=== PATIENT | female | born 1980 | race Caucasian/White ===

== ENCOUNTER → 2018-05-03 | Outpatient (CLI) | payer OTHER ==
--- NOTE | 2018-05-03 12:04 | KCIC ---
Complete abdominal ultrasound dated 05/03/2018. No comparison available. CLINICAL INDICATION: Abdominal pain. FINDINGS: Liver is of diffuse increased echogenicity, compatible with fatty infiltration. No apparent mass. Delivery tree normal in caliber. Common bile duct measures 4 mm. Gallbladder normal in size and echogenicity. No gallbladder wall thickening or pericholecystic fluid. No gallstones are seen. Right kidney measures 10.5 cm in length. Left kidney measures 10.6 cm in length. No hydronephrosis. Spleen is homogeneous in echogenicity and measures 10.3 cm longitudinal. Limited images portions of pancreas aorta and IVC unremarkable. No significant ascites. IMPRESSION: 1. No acute sonographic abnormality. 2. Mild hepatic steatosis. Electronically signed by: Singh Plaza MD (05/03/2018 12:01 PM) [facility]2
--- NOTE | 2018-05-03 12:06 | KCIC ---
Pelvic ultrasound dated 05/03/2018. No comparison available. Clinical data indication: Right mid pelvic pain. FINDINGS: Transvaginal pelvic ultrasound was performed. Uterus measures 11.8 x 8.8 x 7.4 cm. There is a nodular area of altered echogenicity at the anterior uterine body that measures 2.3 cm in size, likely fibroid. Endometrial complex is thickened measuring up to 18 mm. There is a small amount of fluid in the endometrial canal. Right ovary measures 2.3 x 1.9 x 2.3 cm. Left ovary measures 4.2 x 1.9 x 3.2 cm. Normal color Doppler flow to both ovaries. No free fluid. IMPRESSION: 1. Thickened endometrial complex with small amount of fluid in the endometrial canal, nonspecific. This could be related to menstrual cycle. Recommend clinical correlation. 2. Fibroid uterus. 3. No apparent adnexal mass or free fluid. Electronically signed by: Singh Plaza MD (05/03/2018 12:03 PM) [facility]-KCIC[facility]
== END | disposition home or self-care (01) ==
LOC: KCIC US 07:39
PROVIDERS: ATTEND Physician Assistant Medical
DX: K76.0 Fatty (change of) liver, not elsewhere classified (principal); D25.9 Leiomyoma of uterus, unspecified
CPT/HCPCS: 76700; 76830; 76856

== ENCOUNTER → 2019-02-08 | Outpatient (CLI) | payer OTHER ==
--- NOTE | 2019-02-08 17:17 | KCIC ---
MRI of the brain without contrast 02/08/2019 Clinical History: Headaches and photophobia. Concussion. Technique: Unenhanced T1-weighted sagittal and axial, T2-weighted axial and coronal and FLAIR, gradient echo and diffusion-weighted axial images of the brain were obtained. Findings: Some of the images are degraded by patient motion. The ventricles and sulci are within normal limits in size and configuration. No area of significant abnormal signal intensity is seen involving brain parenchyma. There is no MRI evidence of parenchymal hemorrhage. No extra-axial fluid collection is seen. There is no MRI evidence of acute ischemia/infarction. A 1.6 cm mucous retention cyst is seen involving the left maxillary sinus. Mild mucosal thickening is seen scattered throughout the paranasal sinuses. There are minimal bilateral mastoid effusions. Normal flow voids are seen within the major vascular structures surrounding the brain parenchyma. Impression: 1. Negative MRI of the brain. 2. Mild paranasal sinus and mastoid disease. Electronically signed by: Reji Hancock MD (02/08/2019 5:14 PM) [facility]-KC[facility]1
== END | disposition home or self-care (01) ==
LOC: KCIC MRI 14:02
PROVIDERS: ATTEND Psychiatry & Neurology Neurology with Special Qualifications in Child Neurology
DX: F07.81 Postconcussional syndrome (principal); H74.8X3 Other specified disorders of middle ear and mastoid, bilateral; J34.1 Cyst and mucocele of nose and nasal sinus; J34.89 Other specified disorders of nose and nasal sinuses
CPT/HCPCS: 70551

== ENCOUNTER → 2019-04-26 | Outpatient (CLI) | payer OTHER ==
--- NOTE | 2019-04-26 10:09 | RAD ---
EXAM: Lumbar spine, 3 views. HISTORY: Pain. COMPARISON: None. FINDINGS: 3 views of the lumbar spine and 3 views of the sacrum and coccyx are are obtained. There is lumbar dextrocurvature, likely positional. There is minimal retrolisthesis of L1 on L2. There is degenerative endplate remodeling at multiple levels, predominantly at L1-L2. IMPRESSION: 1. Multilevel degenerative change, primarily at L1-L2. 2. No acute osseous finding. Electronically signed by: Marisela Hitchcock MD (04/26/2019 10:06 AM) [facility]
== END | disposition home or self-care (01) ==
LOC: RAD 09:23
PROVIDERS: ATTEND Physician Assistant Medical
DX: M47.816 Spondylosis without myelopathy or radiculopathy, lumbar region (principal)
CPT/HCPCS: 72110; 72220

== ENCOUNTER → 2019-07-06 | Outpatient (CLI) | payer OTHER ==
[~2019-07-06] MED LIST: ALPR0.5T6 PO; BACL10TA PO; ESCITALOPRAM OX20 MG PO; GABA300C18 PO; GLUC1TAB71 PO; MULT1TAB52 PO; PHEN37.53 PO; PROG100C15 PO; tumeric
--- NOTE | 2019-07-06 11:43 | PAIN ---
DATE OF SERVICE: 07/06/2019 INITIAL CONSULTATION FOR PAIN CLINIC CHIEF COMPLAINT: Neck and bilateral upper extremity pain, right greater than left. HISTORY OF PRESENT ILLNESS: This is a 38-year-old female who presents with history of pain since 10/14/2018. She slipped and fell on some ice at that time and landed on her back, hit her head, had a concussion and injuries of the upper mid back and low back with pain in the base of the neck and right upper extremity as well as the left upper extremity in the shoulders since that time. The patient reports it has been getting worse with radiation to the right arm with numbness and tingling, aching, cramping pain in the right hand especially. The patient reports that she has had physical therapy. She has been doing water therapy on her own as well, also had exercises from the therapy that she has been trying which have not been significantly reducing the pain. The patient had been taking gabapentin 300 mg at bedtime as well as baclofen only with minimal decrease in pain as well. The patient reports the pain wakes her at least 5 times at night, does not affect her bowel or bladder control and does not affect her ability to walk, but significant pain with increasing range of motion with her upper extremities, reaching anything above her head with her right arm, especially but also with the left arm, repetitive motions, weightbearing and lifting with the arm. The patient reports it is a constant pain in the neck, sharp, stabbing, throbbing, shooting in the right upper extremity and in the left, intermittent in intensity, but always present, tingling, numbness and radiation, cramping and aching in the neck itself. The patient rates her disability rating from 0-10, 10 being the worst, is at 4 with family home responsibilities, social activity, 8 with recreation, 10 with occupational activity, 7 with sexual behavior, 2 with self-care and 0 with life support activities. The patient did have MRI scan of cervical spine showing multilevel degenerative changes with greater severity noted at C6-C7 to the right of midline with compression of the cord noted with protruded annulus C4-C5, C5-C6, large right paracentral disk osteophyte complex, C6-C7 shows central right paracentral disk osteophyte, complex as well. PAST MEDICAL HISTORY: Significant for previous bladder cancer, status post chemotherapy in 2016 with remission by her report, dizziness, headaches, arthritis. PREVIOUS SURGERY: Include an ACL repair, bladder surgery, left shoulder surgery and tubal ligation. CURRENT MEDICATIONS: Include alprazolam, multivitamins, Osteo Bi-Flex, baclofen, escitalopram, Prometrium, phentermine, gabapentin. ALLERGIES: THE PATIENT IS ALLERGIC TO AZITHROMYCIN. FAMILY HISTORY: Significant for cancers. SOCIAL HISTORY: The patient does not smoke, drinks alcohol very rarely, not since October of this year. No recreational, illicit or other illegal substances or drugs. 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 REVIEW OF SYSTEMS: The patient's review of systems is positive for those items mentioned in history of present illness. All systems reviewed and otherwise negative. It is complete, full and well documented on the patient's chart. PHYSICAL EXAMINATION: VITAL SIGNS: The patient's blood pressure 139/75, pulse 84, respirations 18, temperature is 98.2 degrees Fahrenheit, height is 5 foot 6 inches and weight is 229 pounds. GENERAL: The patient is awake, alert, oriented, appropriate, very pleasant demeanor. HEENT: Head is normocephalic, atraumatic. Extraocular movements are intact and symmetrical. Oral cavity, mucous membranes are moist and pink. Dentition is intact. NECK: Shows anterior throat supple without palpable lymphadenopathy noted. Swallow reflex symmetrical. CHEST: Shows normal on inspection. Breath sounds clear to auscultation bilaterally. HEART: Shows S1, S2 clear. No murmurs auscultated. ABDOMEN: Soft, nontender, nondistended. No palpable organomegaly is noted. No rebound or guarding demonstrated. BACK: Shows spine grossly in the midline. Normal appearing thoracic kyphosis and lumbar lordotic curvature. Cervical lordotic curvature is maintained as well. The patient's cervical paraspinous muscle shows symmetrical on inspection, on palpation some moderate tenderness diffusely bilaterally, but only diffusely without significant radiation. The patient has good rotational motion both laterally greater than 45 degrees closer to 90 degrees, right and left lateral rotation as well as full extension, full forward flexion without significant pain reported. The patient shows some significant tenderness; however, in the musculature throughout the middle and lower distribution of the cervical paraspinous muscles into the left greater than right paraspinous musculature and into the left greater than right trapezius musculature as well as some in the upper thoracic distribution of paraspinous muscles and rhomboid with very firm rope-like musculature, tender but without specific radiation. EXTREMITIES: The patient's upper extremities show deep tendon reflexes 2+ in the biceps, triceps tendons. Motor exam is strong with electrical software engineer strength rated at 5/5 as is bicep and tricep flexion. The patient does report pain in the base of the neck and between the shoulder blades with bicep and tricep flexion and resistance. Peripheral pulses are 2+, radial distribution. No peripheral edema is noted bilaterally. Shoulder shrug is strong and intact without loss of strength on resistance as is abduction of shoulder to 90 degrees without loss of strength on resistance. SKIN: Shows warm and dry, good turgor. No edema. No sores, rashes or bruising throughout. IMPRESSION: 1. This is a 38-year-old female with history of a fall in 10/2018 with pain in the base of the neck, right upper extremity and left upper extremity in a radicular fashion from a C6-C7 dermatomal distribution with pain and some numbness and tingling into the thumb and first finger on the right hand primarily. 2. MRI scan of cervical spine as noted. 3. History of bladder cancer. 4. Arthritis. PLAN: Options were discussed with the patient including conservative medical management, continued physical therapies, interventional techniques and she has been doing physical therapies and pool therapy on her own as well as exercises on her own. She would like to pursue interventional techniques. We discussed a cervical epidural steroid injection using description as well as anatomical models to describe the procedure. The patient will wait for preauthorization with her insurance provider. I will have her return for a translaminar C6-C7 level cervical epidural steroid injection for the clinical radiculopathy, right sided C6-C7. In the meantime, the patient will maintain activity as tolerated and also try Medrol Dosepak. The patient was given instruction as well as side effects to be aware of with the medication and will follow up as scheduled for cervical epidural steroid injection. ANURAG COTTON MD DR: MERCEDES/liat JOB#: [id number] / [id number]
== END | disposition home or self-care (01) ==
LOC: PNCL 10:17
PROVIDERS: ATTEND Anesthesiology
DX: M50.10 Cervical disc disorder with radiculopathy, unspecified cervical region (principal); M79.601 Pain in right arm; M79.602 Pain in left arm; M19.90 Unspecified osteoarthritis, unspecified site; Z88.1 Allergy status to other antibiotic agents; Z85.51 Personal history of malignant neoplasm of bladder; Z92.21 Personal history of antineoplastic chemotherapy
CPT/HCPCS: G0463

== ENCOUNTER → 2019-07-24 | Outpatient (CLI) | payer OTHER ==
[~2019-07-24] MED LIST changes: +BUPIVACAINE MPF 0.25% 10 ML VIAL. ONE; +IOHEXOL 180 MG/ML 10 ML VIAL. ONE; +methylPREDNISolone ACETATE 40 MG/ML VIAL. ONE; +methylPREDNISolone ACETATE 80 MG/ML VIAL. ONE
--- NOTE | 2019-07-25 00:52 | PAIN ---
DATE OF SERVICE: 07/24/2019 PROGRESS NOTE FOR PAIN CLINIC DIAGNOSES: Cervical radiculopathy with cervical degenerative disk disease and cervical herniated disk. HISTORY OF PRESENT ILLNESS: The patient is a 38-year-old female who returns for followup status post initial evaluation and preauthorization for cervical epidural steroid injection. The patient reports still significant pain in the base of neck and upper extremities, more on the right than the left, also in the upper back, mid back and some in the low back as well. The patient reports tingling and numbness in the right hand as well. No new motor or sensory deficits, no new changes. She has achieved her preauthorization and would like to proceed with a cervical epidural steroid injection today. The patient reports the pain is radiating, becoming more constant, cramping, tingling, aching, sharp, shooting and tight in the right upper extremity, especially in the base of the neck. The patient reports it is 9 on a scale of 10 at all times over the past week, average worst and least and is a 9 today. The patient reports it awakens her from sleep about every 3 hours. She does not report any new motor or sensory deficits or other complaints. PHYSICAL EXAMINATION: VITAL SIGNS: The patient's blood pressure 139/95, pulse 78, respirations 18, temperature 98.2 degrees Fahrenheit, height is 5 feet 6 inches and weight is 218 pounds. GENERAL: The patient is awake, alert, oriented, appropriate, very pleasant demeanor. HEENT: Shows normocephalic, atraumatic. Extraocular movements are intact and symmetrical. Oral cavity: Mucous membranes moist and pink. Dentition is intact. NECK: Shows anterior throat supple without palpable lymphadenopathy noted. Swallow reflex symmetrical. CHEST: Shows normal on inspection. Breath sounds clear to auscultation bilaterally. HEART: Shows S1, S2 clear. No murmurs auscultated. ABDOMEN: Soft, nontender, nondistended. No palpable organomegaly is noted. No rebound or guarding demonstrated. BACK: Shows spine grossly in the midline. Normal appearing thoracic kyphosis and lumbar lordotic curvature. Cervical lordotic curvature is maintained as well. Cervical paraspinous muscle shows symmetrical on inspection, on palpation shows some moderate tenderness diffusely, but only diffusely without significant radiation. The patient has good rotational motion of cervical spine, both laterally greater than 45 degrees closer to 90 degrees as well as full extension, full forward flexion bilaterally. EXTREMITIES: Upper extremities show deep tendon reflexes at 2+ in the biceps and triceps tendons. Motor exam is 5/5 with nylon hot wire cutter strength, bicep and tricep flexion and equal. Peripheral pulses are 2+ radial distribution. No peripheral edema is noted. Options were discussed with the patient. The patient's old chart was reviewed as her current medication regimen updated. Current review of systems updated today as well. We will proceed with a first in the series of cervical epidural steroid injection today with fluoroscopic guidance. Risks were again discussed including, but not limited to bleeding, infection, possibility of epidural hematoma and subsequent neurological compromise, dural puncture, headaches, spinal cord and/or nerve damage, side effects of steroid medication and poor results regarding pain control. The patient understands and wished to proceed. The patient will return to clinic in approximately 2 weeks for followup. She was counseled on return appointment, activity level and side effects to be aware of. DIAGNOSES: Cervical radiculopathy with cervical degenerative disk disease and cervical herniated disk. PROCEDURE: Cervical epidural steroid injection, translaminar approach C6-C7 level using C-arm fluoroscopic guidance under sterile prep and drape using local anesthetic. MEDICATION INJECTED: Total of 120 mg Depo-Medrol plus 5 mL of preservative-free normal saline and 2 mL of contrast. CONDITION AT DISCHARGE: Stable. The patient tolerated the procedure well, had no complications. ANURAG COTTON MD DR: MERCEDES/liat JOB#: [id number] / [id number]
== END ==
LOC: PNCL 14:12
PROVIDERS: ATTEND Anesthesiology
DX: M50.123 Cervical disc disorder at C6-C7 level with radiculopathy (principal)
CPT/HCPCS: 62321; J1030; J1040; J3490; Q9965

== ENCOUNTER → 2019-08-08 | Outpatient (CLI) | payer OTHER ==
[~2019-08-08] MED LIST changes: -BUPIVACAINE MPF 0.25% 10 ML VIAL. ONE; +LIDOCAINE 1% PF 2 ML VIAL. ONE
--- NOTE | 2019-08-08 22:41 | PAIN ---
DATE OF SERVICE: 08/08/2019 PROGRESS NOTE FOR PAIN CLINIC DIAGNOSES: Cervical radiculopathy with cervical degenerative disk disease and cervical herniated disk. HISTORY OF PRESENT ILLNESS: The patient is a 38-year-old female who returns for followup status post cervical epidural steroid injections x 1 on 07/24/2019. The patient did well with this approximately 50% improvement, and the left arm is completely resolved, her right arm is her main complaint now with pain in the base of the neck and shoulder, right upper extremity with numbness in the thumb and first and second fingers. The patient reports it is a 9 on a scale of 10 at its worst in the past week, 9 on average, 7 at its least and is a 9 today. The patient reports it is aching, sharp, shooting, tingling, burning, cramping, radiating pain is constant and severe, worse with repetitive motions with weightbearing on the right arm, driving a car with her right hand, reaching with the right arm or raising over her head with her right arm. The patient reports no new motor or sensory deficits, no new bowel or bladder incontinence, but has been awakening her from sleep occasionally. PHYSICAL EXAMINATION: VITAL SIGNS: The patient's blood pressure 129/81, pulse 79, respirations 18, temperature 98.1 degrees Fahrenheit, height is 5 feet 6 inches and weight is 222 pounds. GENERAL: The patient is awake, alert, oriented, appropriate, very pleasant demeanor. HEENT: Shows normocephalic, atraumatic. Extraocular movements are intact and symmetrical. Oral cavity: Mucous membranes moist and pink. Dentition is intact. NECK: Shows anterior throat supple without palpable lymphadenopathy noted. Swallow reflex symmetrical. CHEST: Shows normal on inspection. Breath sounds clear to auscultation bilaterally. HEART: Shows S1, S2 clear. No murmurs auscultated. ABDOMEN: Soft, nontender, nondistended. BACK: Shows spine grossly in the midline. Cervical paraspinous muscle shows symmetrical on inspection, on palpation shows some moderate tenderness diffusely bilaterally in the inferior cervical paraspinous musculature, right greater than left and into the superior medial and lateral trapezius as well without specific atrophy or hypertrophy. The patient has full rotational motion of cervical spine, both laterally as well as extension and flexion without difficulty. EXTREMITIES: Upper extremities show deep tendon reflexes at 2+ in the biceps, triceps tendons. Motor exam is strong with 5/5 tube lancer strength, bicep and tricep flexion and symmetrical. Peripheral pulses are 2+ radial. No peripheral edema is noted bilaterally. Options were discussed with the patient. The patient's old chart was reviewed, her current medication regimen updated. Current review of systems updated today as well. We will proceed with a second in the series of cervical epidural steroid injection today with fluoroscopic guidance. Risks were again discussed including, but not limited to bleeding, infection, possibility of epidural hematoma, subsequent neurologic compromise, dural puncture, headaches, spinal cord and/or nerve damage, side effects of steroid medication and poor results regarding pain control. The patient understands and wished to proceed. The patient will return to clinic in approximately 2 weeks for followup. She was counseled on return appointment, activity level and side effects to be aware of. DIAGNOSES: Cervical radiculopathy with cervical degenerative disk disease and cervical herniated disk. PROCEDURE: Cervical epidural steroid injection, translaminar approach C6-C7 level using C-arm fluoroscopic guidance under sterile prep and drape using local anesthetic. MEDICATION INJECTED: A total of 120 mg Depo-Medrol plus 5 mL of preservative-free normal saline and 2 mL of contrast. CONDITION AT DISCHARGE: Stable. The patient tolerated the procedure well, had no complications. ANURAG COTTON MD DR: MERCEDES/liat JOB#: [id number] / [id number]
== END ==
LOC: PNCL 13:43
PROVIDERS: ATTEND Anesthesiology
DX: M50.123 Cervical disc disorder at C6-C7 level with radiculopathy (principal)
CPT/HCPCS: 62321; J1030; J1040; Q9965

== ENCOUNTER → 2019-08-22 | Outpatient (CLI) | payer OTHER ==
[~2019-08-22] MED LIST changes: -LIDOCAINE 1% PF 2 ML VIAL. ONE
--- NOTE | 2019-08-23 01:05 | PAIN ---
DATE OF SERVICE: 08/22/2019 PROGRESS NOTE FOR PAIN CLINIC DIAGNOSES: Cervical radiculopathy with cervical degenerative disk disease and cervical herniated disk. HISTORY OF PRESENT ILLNESS: The patient is a 38-year-old female who returns for followup status post cervical epidural steroid injection x 2, did well after the last injection about 50% improvement overall. Pain in the neck and right upper extremity is still significant. Also, has some headaches and pain in the base of the neck as well. The patient reports that 10 on a scale of 10 at its worst over the past week, 9 on average, 7 at its least and is an 8 today. The patient reports it is sharp, dull, tight, shooting, tingling, burning and stabbing. Burning only for about 3 days after the last injection and that resolved. The patient reports it is radiating, constant, becoming more severe on the right arm with some weakness and numbness in the right hand. The patient reports no new motor or sensory deficits, no new bowel or bladder incontinence or other complaints. PHYSICAL EXAMINATION: VITAL SIGNS: The patient's blood pressure is 131/100, pulse is 114, respirations are 16, temperature is 98.9 degrees Fahrenheit, height is 5 feet 6 inches, weight is 218 pounds. GENERAL: The patient is awake, alert, oriented, appropriate, very pleasant demeanor. HEENT: Head shows normocephalic, atraumatic. Extraocular movements are intact and symmetrical. Oral cavity shows mucous membranes are moist and pink. Dentition is intact. NECK: Shows anterior throat supple without palpable lymphadenopathy noted. Swallow reflex symmetrical. CHEST: Shows normal on inspection. Breath sounds are clear bilaterally. HEART: Shows S1, S2 clear. No murmurs auscultated. ABDOMEN: Soft, nontender, nondistended. BACK: Shows spine grossly in the midline. Cervical paraspinous muscle shows symmetrical on inspection, on palpation shows some moderate tenderness diffusely bilaterally going diffusely without radiation. The patient shows good rotational motion of cervical spine, both laterally as well as extension and flexion without significant difficulty. EXTREMITIES: Upper extremities show deep tendon reflexes 2+ in the biceps and triceps tendons. Motor exam is strong with 5/5 petrologist strength at bicep and tricep flexion and are equal as well. Peripheral pulses are 2+ radial distribution. No peripheral edema is noted. Shoulder shrug is strong and intact without loss of strength on resistance bilaterally. Options were discussed with the patient. The patient's old chart was reviewed as her current medication regimen updated. Current review of systems updated today as well. We will proceed with a third in the series of cervical epidural steroid injection today with fluoroscopic guidance. Risks were again discussed including, but not limited to bleeding, infection, possibility of epidural hematoma, subsequent neurological compromise, dural puncture, headaches, spinal cord and/or nerve damage, side effects of steroid medication and poor results regarding pain control. The patient understands and wished to proceed. The patient will return to clinic in approximately 2 weeks for followup. She was counseled on return appointment, activity level and side effects to be aware of. DIAGNOSES: Cervical radiculopathy with cervical degenerative disk disease and cervical herniated disk. PROCEDURE: Cervical epidural steroid injection, translaminar approach C6-C7 level using C-arm fluoroscopic guidance under sterile prep and drape using local anesthetic. MEDICATION INJECTED: A total of 120 mg Depo-Medrol plus 5 mL of preservative-free normal saline and 2 mL of contrast. CONDITION AT DISCHARGE: Stable. The patient tolerated the procedure well, had no complications. ANURAG COTTON MD DR: MERCEDES/liat JOB#: [id number] / [id number]
== END ==
LOC: PNCL 14:07
PROVIDERS: ATTEND Anesthesiology
DX: M50.123 Cervical disc disorder at C6-C7 level with radiculopathy (principal)
CPT/HCPCS: 62321; J1030; J1040; Q9965

== ENCOUNTER → 2020-02-01 | Outpatient (CLI) | payer OTHER ==
[~2020-02-01] MED LIST changes: +BUPIVACAINE MPF 0.25% 10 ML VIAL. ONE; -IOHEXOL 180 MG/ML 10 ML VIAL. ONE; +MULT-445 PO; -MULT1TAB52 PO; +ONDA4TAB7 PO; +TOPI25TA7 PO; -methylPREDNISolone ACETATE 80 MG/ML VIAL. ONE
--- NOTE | 2020-02-01 11:53 | PAIN ---
DATE OF SERVICE: 02/01/2020 PROGRESS NOTE FOR PAIN CLINIC DIAGNOSES: 1. Cervical radiculopathy with cervical herniated disk, cervical degenerative disk disease. 2. Myofascial pain. HISTORY OF PRESENT ILLNESS: The patient is a 39-year-old female who returns for followup status post cervical epidural steroid injections x 3, most recently 08/22/2019. The patient did very well with near 100% improvement initially, but pain is returning in the base of the neck and shoulders, especially on the right side radiating to the posterior shoulder, upper back and into the right arm, into the triceps as well as the biceps on the right side radiating into the forearm and hand with some numbness and tingling. 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 She is noticing it is much more difficult to feel the distribution on the arm and her arm is becoming more weak and difficulty with proprioception as well. The patient reports the pain is a 10 on a scale of 10 at its worst over the past week, 10 on average, 8 at its least and is a 10 today. The patient reports it is aching and sharp, tight and shooting in the base of neck and shoulders, again worse on the right than the left with tingling and burning in the right arm and hand and is becoming more constant on the right side. The patient reports no loss of motor function, but significant fatigability with right arm. Again, did very well after last injections of cervical epidural steroid injections, but the pain is returning. The patient has followed up with her neurosurgeon who is requesting further continued conservative therapy and not surgery at this time. PHYSICAL EXAMINATION: VITAL SIGNS: The patient's blood pressure 136/97, pulse 96, respirations 18, temperature 98.5 degrees Fahrenheit, height is 5 feet 6 inches, and weight is 217 pounds. GENERAL: The patient is awake, alert, oriented, appropriate, very pleasant demeanor. HEENT: Shows normocephalic, atraumatic. Extraocular movements are intact and symmetrical. Oral cavity: Mucous membranes moist and pink. Dentition is intact. NECK: Shows anterior throat supple without palpable lymphadenopathy noted. Swallow reflex symmetrical. CHEST: Shows normal on inspection. Breath sounds are clear to auscultation bilaterally. No rales, rhonchi or wheezes auscultated. HEART: Shows S1, S2 clear. ABDOMEN: Soft, nontender, nondistended. BACK: Shows spine grossly in the midline. Cervical lordotic curvature as well as thoracic kyphotic curvature is normal in appearance. Cervical paraspinous muscle shows symmetrical on inspection, with palpation shows some very firm rope-like musculature, especially on the right side in the superior, middle and inferior aspect of the cervical paraspinous musculature consistent with trigger point areas of musculature. This is true on the left, but only in the inferior aspect and into the trapezius bilaterally. She has very firm rope-like musculature, especially on the right, very tender without radiation. This is true into the thoracic rhomboid musculature as well as thoracic paraspinous muscles, again worse on the right than the left, but without radiation. EXTREMITIES: Upper extremities show deep tendon reflexes at 2+ in the biceps and triceps tendons. Motor exam is strong with 5/5 guitar maker hand strength and equal bilaterally. Shoulder shrug is strong and intact, but with moderate tenderness with resistance on the right side, but without loss of strength on the right side. Options were discussed with the patient. The patient's old chart was reviewed as her current medication regimen updated. Current review of systems updated today as well. We will proceed with trigger point injections of the identified musculature. Risks were discussed including but not limited to bleeding, infection, possibility of intravascular injection sequelae, spread of local anesthetic and numbness, pneumothorax and side effects of steroid medication as well as poor results regarding pain control. The patient understands and wished to proceed. The patient will return to clinic in approximately 2 weeks for followup. She was counseled on return appointment, activity level and side effects to be aware of. We will plan on cervical epidural steroid injection on her next visit and she does have a clinical radiculopathy on the right side at the C6-C7 dermatomal distribution and did very well with injections, most recently on 08/2019. We will plan on translaminar approach at C6-C7 level for right-sided cervical radiculopathy at that time. DIAGNOSES: Myofascial pain and cervical radiculopathy with cervical herniated disk, cervical degenerative disk disease. PROCEDURE: Trigger point injections, bilateral cervical paraspinous musculature, bilateral trapezius musculature, bilateral thoracic paraspinous musculature under sterile prep and drape using local anesthetic. MEDICATION INJECTED: A total of 11 mL of 0.25% bupivacaine and 40 mg total of Depo-Medrol after negative aspiration at each injection site. CONDITION AT DISCHARGE: Stable. The patient tolerated the procedure well, had no complications. ANURAG COTTON MD DR: MERCEDES/liat JOB#: [id number] / [id number]
== END ==
LOC: PNCL 10:36
PROVIDERS: ATTEND Anesthesiology
DX: M79.18 Myalgia, other site (principal); M50.10 Cervical disc disorder with radiculopathy, unspecified cervical region
CPT/HCPCS: 20553; J1030; J3490

== ENCOUNTER → 2020-02-15 | Outpatient (CLI) | payer OTHER ==
[~2020-02-15] MED LIST changes: -BUPIVACAINE MPF 0.25% 10 ML VIAL. ONE; +IOHEXOL 180 MG/ML 10 ML VIAL. ONE; +methylPREDNISolone ACETATE 80 MG/ML VIAL. ONE
--- NOTE | 2020-02-15 13:07 | PAIN ---
DATE OF SERVICE: 02/15/2020 PROGRESS NOTE FOR PAIN CLINIC DIAGNOSES: 1. Cervical radiculopathy with cervical herniated disk and cervical degenerative disk disease. 2. Myofascial pain. HISTORY OF PRESENT ILLNESS: The patient is a 39-year-old female who returns for followup status post trigger point injections on her last visit 02/01/2020. The patient reports she did very well with about a 50% improvement or so, but the pain is returning now and has worsened in neck and the right upper extremity. The patient reports it is radiating, stinging, burning, stabbing at times, becoming more constant, tight, shooting, worse with activity, raising her arms over her head, especially on the right side and weight lifting, carrying items. The patient reports it is a 10 on a scale of 10 at its worst over the past week, 9 on average, 7 at its least and is a 7 today. The patient reports no new motor or sensory deficits, no new changes. PHYSICAL EXAMINATION: VITAL SIGNS: The patient's blood pressure is 116/71, pulse 81, respirations are 16, temperature 98.1, height is 5 feet 6 inches, weight is 218 pounds. GENERAL: The patient is awake, alert, oriented, appropriate, very pleasant demeanor. HEENT: Shows normocephalic, atraumatic. Extraocular movements are intact and symmetrical. Oral cavity: Mucous membranes moist and pink. Dentition is intact. NECK: Shows anterior throat supple without palpable lymphadenopathy noted. Swallow reflex symmetrical. CHEST: Shows normal on inspection. Breath sounds are clear bilaterally. HEART: Shows S1, S2 clear. No murmurs auscultated. ABDOMEN: Soft, obese, nontender, nondistended. BACK: Shows spine grossly in the midline, normal-appearing cervical lordotic curvature, thoracic kyphotic curvature and lumbar lordotic curvature. Cervical paraspinous muscle shows symmetrical on inspection, with palpation shows some moderate tenderness diffusely bilaterally going diffusely without significant radiation. The patient does have some moderate tenderness in the thoracic paraspinous musculature, is very firm rope-like musculature on the left only. This is true into the lumbar distribution of the upper lumbar and lower thoracic on the left side with trigger point areas of musculature as well. It is very firm and tender, but not on the right. EXTREMITIES: The patient's upper extremities show deep tendon reflexes 2+ in the biceps and triceps tendons. Motor exam is strong with 5/5 sales management intern strength, bicep and tricep flexion. Peripheral pulses are 2+ radial. No peripheral edema bilaterally. Options were discussed with the patient. The patient's old chart was reviewed as her current medication regimen updated. Current review of systems updated today as well and we will proceed with a cervical epidural steroid injection today with fluoroscopic guidance. Risks were again discussed including, but not limited to bleeding, infection, possibility of epidural hematoma, subsequent neurological compromise, dural puncture, headaches, spinal cord and/or nerve damage, side effects of steroid medication and poor results regarding pain control. The patient understands and wished to proceed. The patient will return to clinic in approximately 2 weeks for followup. She was counseled on return appointment, activity level and side effects to be aware of. DIAGNOSES: Cervical radiculopathy with cervical degenerative disk disease and cervical herniated disk. PROCEDURE: Cervical epidural steroid injection, translaminar approach C6-C7 level using C-arm fluoroscopic guidance under sterile prep and drape using local anesthetic. MEDICATION INJECTED: A total of 120 mg Depo-Medrol plus 5 mL of preservative-free normal saline and 2 mL of contrast. CONDITION AT DISCHARGE: Stable. The patient tolerated the procedure well, had no complications. ANURAG COTTON MD DR: MERCEDES/liat JOB#: [id number] / [id number]
== END ==
LOC: PNCL 09:38
PROVIDERS: ATTEND Anesthesiology
DX: M50.123 Cervical disc disorder at C6-C7 level with radiculopathy (principal); M79.18 Myalgia, other site
CPT/HCPCS: 62321; J1030; J1040; Q9965

== ENCOUNTER → 2020-02-29 | Outpatient (CLI) | payer OTHER ==
[~2020-02-29] MED LIST changes: +BUPIVACAINE MPF 0.25% 10 ML VIAL. ONE; -IOHEXOL 180 MG/ML 10 ML VIAL. ONE; -methylPREDNISolone ACETATE 80 MG/ML VIAL. ONE
--- NOTE | 2020-03-01 03:30 | PAIN ---
DATE OF SERVICE: 02/29/2020 PROGRESS NOTE FOR PAIN CLINIC DIAGNOSES: 1. Cervical radiculopathy with cervical herniated disk, cervical degenerative disk disease. 2. Myofascial pain. HISTORY OF PRESENT ILLNESS: The patient is a 39-year-old female who returns for followup, status post both trigger point injections and cervical epidural steroid injection. The patient reports cervical epidural steroid injection about 95% improved with the left upper extremity, right side still with some significant radicular pain in the C6-C7 dermatomal distribution, but doing much better on the left side, significantly better with increased activity with greater ease and comfort with the left arm, still painful with the right side. The patient is doing work activities, household activities with greater ease and comfort, sleeping better. The patient reports it is beginning to awaken her from sleep again about every 2 hours. She is also having some significant tightness and spasticity in the neck and shoulders, mostly on the right, in the upper back, mid back, and some in the low back on the right side as well. The patient reports it is an 8 on a scale of 10 at its worst; over the past week, 6 on average; 6 at its least; and is a 6 today. The patient reports it is sometimes dull, but mostly aching and sharp, tight and shooting in the right arm in a radicular pattern, tingling, burning, cramping, stabbing, can be radiating, constant, or severe with activities at work, but she continues to work. The patient reports no new motor or sensory deficits, no new bowel or bladder incontinence. PHYSICAL EXAMINATION: VITAL SIGNS: The patient's blood pressure 125/66, pulse 66, respirations are 18, temperature 98.2 degrees Fahrenheit, height is 5 feet 6 inches, weight is 212 pounds. GENERAL: The patient is awake, alert, oriented, appropriate, very pleasant demeanor. HEENT: Shows normocephalic, atraumatic. Extraocular movements are intact and symmetrical. Oral cavity shows mucous membranes moist and pink. Dentition is intact. NECK: Shows anterior throat supple without palpable lymphadenopathy noted. Swallow reflex symmetrical. CHEST: Shows normal on inspection. Breath sounds are clear bilaterally. HEART: Shows S1, S2 clear. No murmurs auscultated. ABDOMEN: Soft, nontender, nondistended. BACK: Shows spine grossly in the midline. Normal-appearing cervical lordotic curvature, thoracic kyphotic curvature, and lumbar lordotic curvature. Cervical paraspinous musculature shows paraspinous musculature is a very firm, rope-like musculature in the superior, medial, and inferior aspect of the cervical paraspinous musculature, greater on the right than the left, but without specific radiation, but very firm, rope-like musculature consistent with trigger point areas of musculature. This is true into the rhomboid musculature and the trapezius, more on the right than left as well, but present bilaterally and also in the lumbar distribution on the right only in the mid upper distribution with very firm, rope-like musculature consistent with trigger point areas of muscle, very tender, but again without radiation on palpation. EXTREMITIES: The patient's upper extremities show deep tendon reflexes 2+ in the biceps and triceps tendons. Motor exam is strong with 5/5 steam fitter supervisor strength, bicep and tricep flexion, and equal. Peripheral pulses are 2+ at the radial. No peripheral edema bilaterally. Options were discussed with the patient. The patient's old chart was reviewed as her current medication regimen updated. Current review of systems updated today as well. We will proceed with trigger point injections of the identified musculature. Risks were discussed including but not limited to bleeding, infection, possibility of intravascular injection sequelae, spread of local anesthetic and numbness, side effects of steroid medication, pneumothorax as well as poor results regarding pain control. The patient understands and wished to proceed. The patient will return to clinic in approximately 2 weeks for followup. She was counseled on return appointment, activity level, and side effects to be aware of. DIAGNOSES: Cervical radiculopathy with cervical herniated disk, cervical degenerative disk disease, myofascial pain. PROCEDURE: Trigger point injections, bilateral cervical paraspinous musculature, bilateral trapezius musculature, bilateral thoracic paraspinous musculature, and right lumbar paraspinous musculature under sterile prep and drape using local anesthetic. MEDICATION INJECTED: A total of 40 mg Depo-Medrol plus 11 mL of 0.25% bupivacaine after negative aspiration at each injection site. CONDITION AT DISCHARGE: Stable. The patient tolerated the procedure well, had no complications. ANURAG COTTON MD DR: MERCEDES/liat JOB#: [id number] / [id number]
== END | disposition home or self-care (01) ==
LOC: PNCL 09:13
PROVIDERS: ATTEND Anesthesiology
DX: M50.123 Cervical disc disorder at C6-C7 level with radiculopathy (principal); Z79.899 Other long term (current) drug therapy; Z88.8 Allergy status to other drugs, medicaments and biological substances
CPT/HCPCS: 20553; J1030; J3490

== ENCOUNTER → 2020-03-29 | Outpatient (CLI) | payer OTHER ==
[~2020-03-29] MED LIST changes: +IOHEXOL 180 MG/ML 10 ML VIAL. ONE; +methylPREDNISolone ACETATE 80 MG/ML VIAL. ONE
--- NOTE | 2020-03-29 11:57 | PAIN ---
DATE OF SERVICE: 03/29/2020 PROGRESS NOTE FOR PAIN CLINIC DIAGNOSES: Cervical radiculopathy with cervical herniated disk, cervical degenerative disk disease. HISTORY OF PRESENT ILLNESS: The patient is a 39-year-old female who returns for followup status post cervical epidural steroid injection x 1. The patient reports about 95% improvement of pain in the left shoulder and upper extremities. The patient reports the right side is still painful; however, she had waited for preauthorization for second injection. She has obtained that today and would like to proceed. The patient reports the pain is tingling, burning, cramping, and stabbing sporadically in the base of the neck and shoulders, upper neck and right arm. The patient reports it is aching, it is sharp, tight, shooting in the arm, radiating, constant, can be severe sporadically, on and off in intensity, worse with activity. 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 It has exacerbated the pain to some extent. The patient reports it awakens her from sleep about every 2-3 hours at night. She can easily reposition and get back to sleep. The patient reports no new motor or sensory deficits, no new bowel or bladder incontinence or other complaints. PHYSICAL EXAMINATION: VITAL SIGNS: The patient's blood pressure 126/81, pulse 81, respirations 18, temperature 98.0 degrees Fahrenheit, height is 5 feet 6 inches, weight is 215 pounds. GENERAL: The patient is awake, alert, oriented, appropriate, very pleasant demeanor. HEENT: Shows normocephalic, atraumatic. Extraocular movements are intact and symmetrical. Oral cavity shows mucous membranes moist and pink. Dentition is intact. NECK: Shows anterior throat supple without palpable lymphadenopathy noted. Swallow reflex symmetrical. CHEST: Shows normal on inspection. Breath sounds are clear to auscultation bilaterally. HEART: Shows S1, S2 clear. No murmurs auscultated. ABDOMEN: Soft, obese, nontender, nondistended. No palpable organomegaly is noted. No rebound or guarding demonstrated. BACK: Shows spine grossly in the midline. Cervical paraspinous muscle shows symmetrical on inspection, on palpation shows some moderate tenderness diffusely bilaterally, but only diffusely without significant radiation. The patient has good rotational motion both laterally greater than 45 degrees closer to 90 degrees, right and left lateral rotation as well as full extension, full forward flexion without significant pain reported. EXTREMITIES: The patient's upper extremities show deep tendon reflexes at 2+ in the biceps and triceps tendons. Motor exam is strong with art librarian strength rated at 5/5 and equal. Options were discussed with the patient. The patient's old chart was reviewed as her current medication regimen updated. Current review of systems updated today as well as we will proceed with a second in a series of cervical epidural steroid injection today with fluoroscopic guidance. Risks were again discussed including, but not limited to bleeding, infection, possibility of epidural hematoma, subsequent neurological compromise, dural puncture, headaches, spinal cord and/or nerve damage, side effects of steroid medication and poor results regarding pain control. The patient understands and wished to proceed. The patient will return to clinic in approximately 2 weeks for followup. She was counseled on return appointment, activity level and side effects to be aware of. DIAGNOSES: Cervical radiculopathy with cervical degenerative disk disease and cervical herniated disk. PROCEDURE: Cervical epidural steroid injection, translaminar approach C6-C7 level using C-arm fluoroscopic guidance under sterile prep and drape using local anesthetic. MEDICATION INJECTED: A total of 120 mg Depo-Medrol plus 5 mL of preservative-free normal saline and 2 mL of contrast. CONDITION AT DISCHARGE: Stable. The patient tolerated procedure well, had no complications. ANURAG COTTON MD DR: MERCEDES/liat JOB#: [id number] / [id number]
== END | disposition home or self-care (01) ==
LOC: PNCL 09:25
PROVIDERS: ATTEND Anesthesiology
DX: M50.123 Cervical disc disorder at C6-C7 level with radiculopathy (principal); Z79.899 Other long term (current) drug therapy; Z88.8 Allergy status to other drugs, medicaments and biological substances
CPT/HCPCS: 62321; J1030; J1040; J3490; Q9965

== ENCOUNTER → 2020-04-19 | Outpatient (CLI) | payer OTHER ==
[~2020-04-19] MED LIST changes: -BUPIVACAINE MPF 0.25% 10 ML VIAL. ONE
--- NOTE | 2020-04-19 11:11 | PDOC ---
Progress Note - Pain Clinic Date of Service: DOS: DATE: 04/19/20 TIME: 11:06 Diagnosis: Dx: Cervical radiculopathy with cervical degenerative disc disease and cervical herniated disc History or Present Illness: HPI: 39-year-old female returns follow-up status post cervical epidural steroid injections x2. Patient reports about 50% improvement and still lasting through this day. Last injection was in March 29, 2020. Patient ports he is doing quite well very pleased with her progress still some pain in the base the neck and shoulders more on the right upper extremity than the left. Patient describes as tingling cramping stabbing radiating at times constant in certain places in the shoulders and upper back but aching and sharp dull occasionally in the neck and back as well as tightness shooting in the right arm. Patient reports no new motor or sensory deficits still examined sleep about every 5 hours or so. Patient reports no loss of motor function exacerbation of pain with lifting over her right arm to overhead reaching forward and pulling items as well. Patient ports no significant pain in the left arm. Physical Exam: VS: Blood pressure is 117/80 pulse 75 respirations 18 temperature 98.3 F height is 5 foot 6 inches weight is 210 pounds PE: PHYSICAL EXAMINATION: GENERAL: The patient is awake, alert, oriented, appropriate, very pleasant demea nor HEENT: Shows normocephalic, atraumatic. Extraocular movements are intact and symmetrical. Oral cavity: Mucous membranes moist and pink. Dentition is intact. NECK: Shows anterior throat supple without palpable lymphadenopathy noted. Swallow reflex symmetrical. CHEST: Shows normal on inspection. Breath sounds are clear bilaterally no rales rhonchi or wheezes auscultated. HEART: Shows S1, S2 clear. No murmurs auscultated. ABDOMEN: Soft, nontender, nondistended. No palpable organomegaly is noted. No rebound demonstrated. BACK: Shows spine grossly in the midline. Normal-appearing cervical lordotic curvature. Cervical spine shows full rotation motion both laterally greater than 45 degrees as well as full extension full forward flexion without signifi cant difficulty or pain reported. There is slightly increased thoracic kyphosis, some minor flattening of the lumbar lordotic curvature. Lumbar paraspinous muscles show symmetrical on inspection, on palpation shows some moderate tenderness diffusely throughout the upper, middle and lower distribution of the paraspinous muscles bilaterally without specific trigger points, without radiation of pain. The patient has good rotational motion of the lumbar spine, both laterally as well as extension and flexion without significant difficulty. No tenderness over the spinous processes, sacrum or sacroiliac regions. EXTREMITIES: upper extremities show deep tendon reflexes 2+ in the patellar and tendo calcaneus tendons. Motor exam is 5 on a scale of 5 with right biceps and triceps flexion and 5/5 on the left. Peripheral pulses are 2+ radial. No peripheral edema is noted bilaterally. upper extremities are warm and dry to touch, equal in color and appearance. SKIN: Shows warm and dry, good turgor. No edema. No sores, rashes or bruising throughout. Procedure: Procedure: Options were discussed with the patient. Patient's chart was reviewed as her current medication regimen updated current review of systems updated today as well. We will proceed with a third in the series cervical epidural steroid injection today with fluoroscopic guidance risks again discussed including but not limited to bleeding infection possibility of epidural hematoma and subsequent neurological compromise dural puncture headache spinal cord and or nerve damage side effects of steroid medication and poor results chronic pain control. Patient understands wished to proceed. Patient return to clinic in approximately 2 weeks for follow-up was counseled as to return appointment activity level and side effects to be aware of. Medication Injected: Med Injected: Procedure cervical epidural steroid injection at the C6-7 level, using local anesthetic under sterile prep and drape using C-arm fluoroscopic guidance under local anesthesia medications injected ; 120 mg Depo-Medrol + 5 mL normal saline and 2 mL contrast; condition at discharge is stable patient tolerated procedure well. and had no complications Condition at Discharge: Condition at Discharge: Condition at discharge stable patient procedure well had no immediate complicat ANURAG Seals MD Apr 19, 2020 11:11
== END | disposition home or self-care (01) ==
LOC: PNCL 10:00
PROVIDERS: ATTEND Anesthesiology
DX: M50.123 Cervical disc disorder at C6-C7 level with radiculopathy (principal); Z88.8 Allergy status to other drugs, medicaments and biological substances; Z79.899 Other long term (current) drug therapy
CPT/HCPCS: 62321; J1030; J1040; Q9965

== ENCOUNTER → 2020-06-21 | Outpatient (CLI) | payer OTHER ==
[~2020-06-21] MED LIST changes: -IOHEXOL 180 MG/ML 10 ML VIAL. ONE; -methylPREDNISolone ACETATE 40 MG/ML VIAL. ONE; -methylPREDNISolone ACETATE 80 MG/ML VIAL. ONE
--- NOTE | 2020-06-21 11:31 | KCIC ---
EXAM: MRI right shoulder DATE: 06/21/2020 8:45 AM COMPARISON: None INDICATION: Right shoulder injury. Right collar/shoulder pain following lifting injury. TECHNIQUE: Multiplanar, multisequence MRI of the right shoulder was performed without contrast. FINDINGS: AC joint degenerative changes are seen. Subacromial-subdeltoid bursal edema. Type II acromion. No os acromiale. Partial-thickness bursal sided tear of the supraspinatus tendon is seen anteriorly measuring approximately 1 cm in AP dimension, involving up to 80-90 percent tendon thickness anteriorly. Moderate increased signal within the supraspinatus and infraspinatus tendons consistent with tendinosis. Severe fatty atrophy of the teres minor. Mild edema within the posterior deltoid. Otherwise rotator cuff muscle signal and bulk is normal. No obvious mass within the quadrilateral space. Intra-articular long head biceps tendon increased signal likely mild tendinosis. No discrete labral tear is seen. Articular cartilage is grossly preserved. No fracture or osteonecrosis. IMPRESSION: 1. Partial-thickness bursal sided tear of the supraspinatus tendon anteriorly. 2. Subacromial subdeltoid bursitis. 3. Severe fatty atrophy teres minor with edema within the posterior deltoid. This may be seen with quadrilateral space syndrome however no definite mass is seen within the quadrilateral space. Electronically signed by: Tremayne Perry MD (06/21/2020 11:28 AM) [id number]
== END ==
LOC: KCIC MRI 08:40
PROVIDERS: ATTEND Physician Assistant
DX: S46.001A Unspecified injury of muscle(s) and tendon(s) of the rotator cuff of right shoulder, initial encounter (principal); M75.51 Bursitis of right shoulder; M25.411 Effusion, right shoulder; X58.XXXA Exposure to other specified factors, initial encounter; Y93.89 Activity, other specified; Y92.89 Other specified places as the place of occurrence of the external cause; Y99.8 Other external cause status
CPT/HCPCS: 73221

== ENCOUNTER → 2020-08-27 | Outpatient (CLI) | payer OTHER ==
--- NOTE | 2020-08-27 15:09 | KCIC ---
EXAMINATION: CT RIGHT UPPER EXTREMITY WO, 08/27/2020 10:25 AM CLINICAL INDICATION: Right sternoclavicular joint sprain, lifting injury in June COMPARISON: None TECHNIQUE: Helical CT imaging performed of the sternoclavicular joints without the use of intravenous contrast. Sagittal and coronal reformats were obtained. One or more of the following individualized dose reduction techniques were utilized for this examinat ion: 1. Automated exposure control 2. Adjustment of the mA and/or kV according to patient size 3. Use of iterative reconstruction technique. FINDINGS: No acute fracture or osseous lesion. Sternoclavicular joints are normal in alignment. There are no destructive changes, erosions, or obvious joint effusion. No significant degenerative joint d isease. IMPRESSION: Normal appearance of the sternoclavicular joints. Electronically signed by: Marisa Castañeda MD (08/27/2020 3:06 PM) [id number]
== END ==
LOC: KCIC CT 10:20
PROVIDERS: ATTEND Physician Assistant
DX: S43.61XA Sprain of right sternoclavicular joint, initial encounter (principal); S46.001A Unspecified injury of muscle(s) and tendon(s) of the rotator cuff of right shoulder, initial encounter; X58.XXXA Exposure to other specified factors, initial encounter; Y93.89 Activity, other specified; Y92.89 Other specified places as the place of occurrence of the external cause; Y99.8 Other external cause status
CPT/HCPCS: 73200

== ENCOUNTER → 2020-10-31 | Outpatient (CLI) | payer OTHER ==
[~2020-10-31] MED LIST changes: +BUPR150T21 PO; +CHOL500045 PO; +DOCU50CA9 PO; +LACT1CAP37 PO; +OMEG1CAP27 PO; +OXYC1TAB19 PO; +PHEN37.598 PO; +TURM500C4 PO; +VITA1TAB19 PO
== END ==
LOC: LAB 14:16
PROVIDERS: ATTEND Orthopaedic Surgery
DX: Z01.812 Encounter for preprocedural laboratory examination (principal); M19.011 Primary osteoarthritis, right shoulder; M75.41 Impingement syndrome of right shoulder; Z20.822 Contact with and (suspected) exposure to COVID-19
CPT/HCPCS: U0003

== ENCOUNTER 2020-11-04 08:07 | Day surgery (SDC) | payer OTHER ==
[~2020-11-04] VITALS: Ht 157.5 cm; Wt 102.5 kg
--- NOTE | 2020-11-04 07:27 | PDOC1 ---
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 After this occurred she was at [facility] and was seen there for evaluation with CT scan of the neck and shoulder x-ray, lab work. She continues to have RIGHT shoulder pain in the lateral deltoid and worse with any attempted overhead use, lifting but not experiencing pain below the elbow. 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 She completed a CT for the sternoclavicular joint to assess for degree of injury which does not report a fracture or separation. MRI shows partial-thickness bursal sided tear of the supraspinatus tendon anteriorly. Subacromial subdeltoid bursitis. Severe fatty atrophy teres minor with edema within the posterior deltoid. This may be seen with quadrilateral space syndrome however no definite mass is seen within the quadrilateral space. Past Medical History Past Medical History She reports a history also of right-sided cervical radiculopathy for which she has discussed surgical management with Dr. Alba. Reviewing her records indicates a C6 radiculopathy on EMGs previously done by Dr. Graff in September of this year. Records also indicate a history of bladder cancer and she tells me today that she is recently seen the oncologist at after completing chemothe rapy and has been cleared regarding her recent cancer recurrence. Past Surgical History Past Surgical History Left Shoulder Arthroscopic 04/1997 biopsy of bladder right knee ACL C/S BTL Past Surgical History: , Tubal Ligation Family History Family History Mother: alive, Allergies Father: alive, DM,HTN,Arthritis Sister: alive, AR, Asthma, Anemia 2 sister(s) . Family History: Asthma, Diabetes, Hypertension, Osteo Arthiritis Social History Smoke: No ALCOHOL: none Current Medications Current Medications Current Medications Fentanyl Citrate (Fentanyl 2ml Vial) 25 mcg PRN Q5MIN PRN IVP MILD PAIN 1-3; Start 11/04/20 at 06:00; Stop 11/05/20 at 05:59 Fentanyl Citrate (Fentanyl 2ml Vial) 50 mcg PRN Q5MIN PRN IVP MODERATE PAIN 4- 6; Start 11/04/20 at 06:00; Stop 11/05/20 at 05:59 Ringer's Solution 1,000 ml @ 30 mls/hr Q24H IV ; Start 11/04/20 at 06:00; Stop 11/04/20 at 17:59 Hydromorphone HCl (Dilaudid) 0.5 mg PRN Q10MIN PRN IVP SEVERE PAIN 7-10, 2nd CHOICE; Start 11/04/20 at 06:00; Stop 11/05/20 at 05:59 Prochlorperazine Edisylate (Compazine) 5 mg PACU PRN PRN IVP NAUSEA, MRX1; Start 11/04/20 at 06:00; Stop 11/05/20 at 05:59 Cefazolin Sodium/ Dextrose 50 ml @ 100 mls/hr 1X PREOP PRN IV PRIOR TO PROCEDURE; Start 11/04/20 at 06:00; Stop 11/04/20 at 18:00 Active Scripts Active Reported Percocet 7.5-325 Mg Tablet (Oxycodone/Acetaminophen) 1 Each Tablet 1 Tab PO PRN Q8HRS PRN Bupropion Xl (Bupropion Hcl) 150 Mg Tab.er.24h 150 Mg PO DAILY Adipex-P (Phentermine Hcl) 37.5 Mg Tablet 37.5 Mg PO DAILY Fish Oil 1,000 Mg Softgel (Holbrook-3 Fatty Acids/Fish Oil) 1 Each Capsule 1 Each PO DAILY Stool Softener (Docusate Sodium) 50 Mg Capsule 1 Cap PO DAILY 30 Days B Complex (Vitamin B Complex) 1 Each Tablet 1 Each PO DAILY Turmeric 500 mg Capsule (Turmeric/Turmeric Root Extract) 1 Each Capsule 1 Each PO DAILY Vitamin D3 (Cholecalciferol (Vitamin D3)) 125 Mcg Tablet 125 Mcg PO DAILY Probiotic (Lactobacillus Combo No.10) 1 Each Capsule 1 Each PO DAILY Topiramate 25 Mg Tablet 100 Tab PO DAILY 30 Days Multivitamins (Multivitamin) 1 Each Tablet 1 Tab PO DAILY Alprazolam 0.5 Mg Tablet 0.5 Tab PO PRN BID PRN Escitalopram Oxalate 20 Mg Tablet 1 Tab PO HS Prometrium (Progesterone,Micronized) 100 Mg Capsule 2 Cap PO DAILY 30 Days Gabapentin (Gabapentin) 300 Mg Capsule 300 Mg PO TID Allergies Allergies: Coded Allergies: azithromycin (Verified Allergy, Intermediate, Rash, 07/06/19) morphine (Verified Adverse Reaction, Intermediate, Itching, 10/31/20) ROS Review of System Classic ROS: Constitutional fevers Denies . Urinary Bladder CA under current chemotherapy treatment. CARDIOLOGY: Leg edema none. RESPIRATORY: Shortness of breath denies. GASTROENTEROLOGY: Weight gain denies. MUSCULOSKELETAL: New arthralgias denies. New Myalgias none. Muscle weakness denies. DERMATOLOGY: Rash denies. NEUROLOGY: Paresthesia/numbness denies. ENDOCRINOLOGY: Poor wound healing no. HEMATOLOGY/LYMPH: Abnormal bruising denies. ALLERGY: Anaphylaxis denies. Physical Exam General: Alert, Oriented X3 HEENT: Atraumatic Lungs: Normal air movement Heart: RRR Abdomen: Soft Extremities: Other (RIGHT shoulder exam: Focally tender over the trapezius, posterior and lateral deltoid, minimal over paravertebral muscles and residually over the sternoclavicular joint without palpable subluxation. Rotator cuff weakness is 4 out of 5 on the right with 5 out of 5 strength on the left by manual muscle strength testing. Weld's is equivocal in part related to pain in the rotator cuff and sternoclavicular joint limiting exam. Mild tenderness over the AC joint, tender over the bicipital tendon groove without subluxation. Negative sulcus sign, equivocal apprehension test. Positive Neers Monterroso and Adore's tests for impingement. No muscle deformity or atrophy noted. ) Skin: No significant lesion Neuro: Normal speech Psych/Mental Status: Mood NL Images Images Reports reviewed and images independently reviewed. The MRI shows the partial thickness rotator cuff tear on series 6 image 10. The acromion appears Bigliani type III both on plain x-rays and on the MRI series [address] [address] IMAGING REPORT Signed PATIENT: EVI VICTOR ACCOUNT: [id number] : 1980 LOCATION: [facility] MRI AGE: 39 SEX: F EXAM STATUS: REG CLI ORD. PHYSICIAN: TAMARA MATTHEWS Jr. REASON: RIGHT SHOULDER INJURY PROCEDURE: UPPER EXT JOINT WO CONT RIGHT EXAM: MRI right shoulder DATE: 06/21/2020 8:45 AM COMPARISON: None INDICATION: Right shoulder injury. Right collar/shoulder pain following lifting injury. TECHNIQUE: Multiplanar, multisequence MRI of the right shoulder was performed without contrast. FINDINGS: AC joint degenerative changes are seen. Subacromial-subdeltoid bursal edema. Type II acromion. No os acromiale. Partial-thickness bursal sided tear of the supraspinatus tendon is seen anteriorly measuring approximately 1 cm in AP dimension, involving up to 80-90 percent tendon thickness anteriorly. Moderate increased signal within the supraspinatus and infraspinatus tendons consistent with tendinosis. Severe fatty atrophy of the teres minor. Mild edema within the posterior deltoid. Otherwise rotator cuff muscle signal and bulk is normal. No obvious mass within the quadrilateral space. Intra-articular long head biceps tendon increased signal likely mild tendinosis. No discrete labral tear is seen. Articular cartilage is grossly preserved. No fracture or osteonecrosis. IMPRESSION: 1. Partial-thickness bursal sided tear of the supraspinatus tendon anteriorly. 2. Subacromial subdeltoid bursitis. 3. Severe fatty atrophy teres minor with edema within the posterior deltoid. This may be seen with quadrilateral space syndrome however no definite mass is seen within the quadrilateral space. Electronically signed by: Tremayne Mixon MD (06/21/2020 11:28 AM) [id number] DICTATED and SIGNED BY: TREMAYNE MIXON MD DATE: 06/21/20 [address] [facility] [address], [place] [id number] IMAGING REPORT Signed PATIENT: EVI VICTOR ACCOUNT: [id number] : 1980 LOCATION: [facility] AGE: 39 SEX: F EXAM STATUS: REG CLI ORD. PHYSICIAN: TAMARA MATTHEWS Jr. REASON: RIGHT SHOULDER PAIN PROCEDURE: SHOULDER 2+V RIGHT 3 views of the right shoulder without comparison for right shoulder pain. FINDINGS: There is no fracture, dislocation, or acute osseous abnormality. Joints and soft tissues are grossly unremarkable. No pathologic calcifications. IMPRESSION: 1. No acute osseous abnormality. Electronically signed by: Leon Hernadez MD (06/18/2020 3:40 PM) [id number] DICTATED and SIGNED BY: LEON HERNADEZ MD DATE: 06/18/20 [address] [facility] [address] [place] [address] IMAGING REPORT Signed PATIENT: EVI VICTOR ACCOUNT: [id number] : 1980 LOCATION: [facility] CT AGE: 39 SEX: F EXAM STATUS: REG CLI ORD. PHYSICIAN: TAMARA MATTHEWS Jr. REASON: Rt sternoclavicular sprain. Lifting injury June 2020. PROCEDURE: CT UPPR EXTREMTY WO CONTRST RT EXAMINATION: CT RIGHT UPPER EXTREMITY WO, 08/27/2020 10:25 AM CLINICAL INDICATION: Right sternoclavicular joint sprain, lifting injury in June COMPARISON: None TECHNIQUE: Helical CT imaging performed of the sternoclavicular joints without the use of intravenous contrast. Sagittal and coronal reformats were obtained. One or more of the following individualized dose reduction techniques were utilized for this examination: 1. Automated exposure control 2. Adjustment of the mA and/or kV according to patient size 3. Use of iterative reconstruction technique. FINDINGS: No acute fracture or osseous lesion. Sternoclavicular joints are normal in alignment. There are no destructive changes, erosions, or obvious joint effusion. No significant degenerative joint disease. IMPRESSION: Normal appearance of the sternoclavicular joints. Electronically signed by: Marisa Castañeda MD (08/27/2020 3:06 PM) [id number] DICTATED and SIGNED BY: MARISA CASTAÑEDA MD DATE: 08/27/20 1503 VTE Prophylaxis Ordered VTE Prophylaxis Devices: Yes VTE Pharmacological Prophylaxi: No Assessment/Plan Assessment/Plan She has a right shoulder symptomatic partial-thickness rotator cuff tear, impingement syndrome, and a Bigliani type III acromion that is causing impingement and likely contributing to the cuff tear, which has not responded to nonoperative treatment and she has had pain since an injury in June. I recommended arthroscopy, subacromial decompression, likely a rotator cuff r epair, and other procedures if indicated. She has some symptoms at the AC joint and biceps tendon but I do not believe those will require surgical treatment. We discussed the potential risks of surgery including stiffness, weakness, failure of the repair, continued pain, neurovascular injury, scarring, or other potential surgical or anesthetic complications. She does have some factors which increase the risk of ongoing symptoms such as the cervical radiculopathy, and her chemotherapy history could increase the risks of difficult or slow healing. She was cleared by her oncologist to proceed with cuff surgery and is not having chemotherapy currently. Justifications for Admission Other Justification ELVIA MESSER MD Nov 04, 2020 07:27
[~2020-11-04 08:07] MED LIST changes: +BUPIVACAINE-EPI 0.25% 30 ML VIAL KIT. ONE; +EPINEPHrine VIAL 30 MG/30 ML VIAL ONE; +HYDROmorphone 2 MG/ML VIAL IVP PRN; +IV RINGERS,LACTATED 1000ML 1,000 ML IV SCH; +LACT1CAP29 PO; -LACT1CAP37 PO; +PROCHLORPERAZINE 10 MG/2 ML VIAL. IVP PRN; +fentaNYL PF VIAL 100 MCG/2 ML VIAL IVP PRN
[2020-11-04] MEDS ORDERED: SCOPOLAMINE 1.5MG PATCH. TD ONE (08:30)
[2020-11-04] MEDS ORDERED: MIDAZOLAM HCL/PF 2 MG/2 ML VIAL. ONE (08:40)
[2020-11-04] MEDS ORDERED: LIDOCAINE 2% PF 5 ML VIAL. ONE (08:40)
[2020-11-04] MEDS ORDERED: ROCURONIUM 50 MG/5 ML VIAL. ONE (08:40)
[2020-11-04] MEDS ORDERED: PROPOFOL 10 MG/ML (20ML) VIAL. IV ONE ×3 (08:40→10:49)
[2020-11-04] MEDS ORDERED: fentaNYL PF VIAL 250 MCG/5 ML VIAL ONE (08:41)
[2020-11-04] MEDS ORDERED: DEXAMETHASONE SOD PHOS 4 MG/ML VIAL ONE (09:08)
[2020-11-04] MEDS ORDERED: ONDANSETRON PF 4 MG/2 ML VIAL. ONE (09:08)
[2020-11-04] MEDS ORDERED: SEVOFLURANE 61 TO 120 MINUTES. IH ONE (09:45)
[2020-11-04] MEDS ORDERED: GLYCOPYRROLATE 1 MG/5 ML VIAL. ONE (10:16)
[2020-11-04] MEDS ORDERED: NEOSTIGMINE METHYLSULFATE 5 MG/5 ML SYRINGE. ONE (10:16)
[2020-11-04] MEDS ORDERED: ceFAZolin SODIUM IV Push 1 GM VIAL. IVP ONE (10:46)
[2020-11-04] MEDS ORDERED: HYDROmorphone 2 MG/ML VIAL ONE (10:47)
--- NOTE | 2020-11-04 11:31 | PDOC4 ---
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 Impingement occurring due to prominent acromion. Prominent arthritic acromioclavicular joint. 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 MRI shows a bursal partial-thickness tear. She has a painful tender acromioclavicular joint. The acromion is Bigliani type 3. She and I discussed the risks benefits and alternatives of surgical treatment. We discussed potential risks of continued pain or weakness, difficulty from her teres minor atrophy, difficulty related to her underlying condition such as cervical spine disease and history of chemotherapy, infections, nerve injury, stiffness, retear of the cuff, or other potential surgical or anesthetic complications. All of her questions about surgery were answered and she desires to proceed. Procedure in Detail: The patient was identified in the preoperative holding area. The correct right shoulder was marked by me. The patient was taken to the operating room where general anesthesia was used. The patient was positioned in the beachchair position with the bony prominences well-padded and the eyes protected. Preoperative antibiotics were given intravenously. A timeout procedure was performed. Under sterile technique 20 mL of bupivacaine with epinephrine was injected into the subacromial space and glenohumeral joint. The limb was then thoroughly prepared with surgical ChloraPrep solution circumferentially. Sterile waterproof arthroscopy shoulder drapes were applied, along with an impervious stockinette over the arm, and a Spider arm rutherford. Posterior, posterolateral, lateral, and anterior arthroscopy portals were used. The glenohumeral joint showed normal articular surfaces of the humeral head and glenoid. The biceps tendon was palpated with the shaver, and is normal. There i s minimal degenerative tearing of the biceps as it attaches to the labrum which was debrided with the shaver and was 10% of the biceps thickness and did not warrant tenodesis. The distal portion of the supraspinatus appears intact from the articular view. The subscapularis tendon is intact. The subacromial space was entered. The anterior acromion was prominent, Bigliani type III and the subacromial space was severely narrowed. The [employer]Med Edge thermal energy bipolar device was used for hemostasis and to resect the undersurface periosteum exposing the prominent anterior acromion. A 6.0 mm oval milton was used for the acromioplasty. A three-stage acromioplasty was performed, with the milton first laterally, removing anterior acromion, using the distal clavicle as a reference. The milton was then placed in the posterior portal, and a cutting block technique was used for smoothing of the lateral edge of the acromion tapering the anterior acromion into a Bigliani type I configuration. Final smoothing of the acromion was performed with the milton again in the lateral portal, and direct arthroscopic visualization. The impingement of the subacrom ial space was now nicely decompressed. No further impingement appears to be occurring from the acromion, however the arthritic distal clavicle is degenerative with an osteoarthritic distal clavicle articular surface. The milton was used to resect the entire articular surface of the distal clavicle and 10 mm of distal clavicle bone, completing the [place] arthroscopic distal clavicle excision. The ConMed Edge thermal energy device was used for hemostasis. The cuff tear was identified and from the bursal view appears to be a small full-thickness crescent tear. The arthroscopic instruments were removed. Antibiotics were redosed. Outer gloves were changed. The skin was prepared a second time with ChloraPrep solution. An anterior lateral deltoid raphae splint ing incision was used. Care was made not to extend more than 4 cm distally so as to avoid axillary nerve injury. Self-retaining retractors were placed. My clinical data assistant used an [employer]-Oxxy retractor in addition to the self-retaining Kobel retractors. The milton, a rongeurs and a bone punch were used to decorticate the supraspinatus footprint, and create a "crimson duvet". The 2 medial 4.75 mm swivel lock anchors with swaged suture tapes were used. All of the medial sutures were deployed with [employer] scorpion device, about 16 mm from the distal edge of the cuff. The medial mattress sutures were secured and tied, and my clinical data assistant held tension reducing the cuff while the sutures were tied, and these medial mattress sutures were placed in a ripstop pattern to prevent the tapes from tearing through the abnormal cuff tissue. The swaged suture tapes were then trimmed, the tapes were crossed, and the 2 lateral row anchors were now placed on the humeral cortex for secure speed bridge repair. The additional sutures from the lateral row anchors were used posteriorly to secure the edges of the dog ear of the tear. A secure and tension-free repair was obtained. The shoulder was taken through a range of motion, and the repair security confirmed. Copious saline irrigation was used. I closed the fascia of the deltoid with #1 Vicryl suture in a [id number] fashion. My clinical data assistant then completed the subcutaneous closure with 2-0 Vicryl. He closed the portals with #3-0 Prolene. He repaired the skin incision with #3-0 Stratafix, Mastisol and Steri-Strips. He injected an additional 30 mL of bupivacaine with epinephrine. Xeroform was used over the portals. A bulky sterile dressing was applied. A DonJoy UltraSling was applied. There were no apparent complications. ELVIA HIGH MD Nov 04, 2020 11:31
[2020-11-04] MEDS: fentaNYL PF VIAL 100 MCG/2 ML VIAL IVP PRN ×3 (12:03→12:30)
[2020-11-04] MEDS ORDERED: oxyCODONE/APAP 7.5/325 1 TAB TABLET PO ONE (12:45)
[2020-11-04 13:30] VITALS: BP 130/61
== END 2020-11-04 14:00 | disposition home or self-care (01) ==
LOC: SURG 08:07
PROVIDERS: ATTEND Orthopaedic Surgery
DX: S46.011A Strain of muscle(s) and tendon(s) of the rotator cuff of right shoulder, initial encounter (principal); M75.41 Impingement syndrome of right shoulder; M19.011 Primary osteoarthritis, right shoulder; F41.9 Anxiety disorder, unspecified; F32.9 Major depressive disorder, single episode, unspecified; Z79.899 Other long term (current) drug therapy; Z98.890 Other specified postprocedural states; Z88.1 Allergy status to other antibiotic agents; Z88.6 Allergy status to analgesic agent; X58.XXXA Exposure to other specified factors, initial encounter; Y93.89 Activity, other specified; Y92.89 Other specified places as the place of occurrence of the external cause; Y99.8 Other external cause status
CPT/HCPCS: 23410; 29824; 81025; A4364; A4565; A4928; A6253; A6402; C1713; J0171; J0690; J1100; J1170; J2405; J2704; J2710; J3010; J3490; A4322; A4452; A4623; A4657; A6454; J2250

== ENCOUNTER → 2021-04-04 | Outpatient (CLI) | payer OTHER ==
[~2021-04-04] MED LIST changes: -BUPIVACAINE-EPI 0.25% 30 ML VIAL KIT. ONE; -EPINEPHrine VIAL 30 MG/30 ML VIAL ONE; -HYDROmorphone 2 MG/ML VIAL IVP PRN; -IV RINGERS,LACTATED 1000ML 1,000 ML IV SCH; -LACT1CAP29 PO; +LACT1CAP37 PO; -PROCHLORPERAZINE 10 MG/2 ML VIAL. IVP PRN; -fentaNYL PF VIAL 100 MCG/2 ML VIAL IVP PRN
--- NOTE | 2021-04-04 16:49 | KCIC ---
EXAM: MRI RIGHT SHOULDER WITHOUT CONTRAST INDICATION: History of right rotator cuff repair. [place] a pop soon after surgery COMPARISON: MRI right shoulder 06/21/2020 TECHNIQUE: Multiplanar, multisequence imaging of the right shoulder without contrast. FINDINGS: ROTATOR CUFF: There are surgical changes of rotator cuff repair. The distal supraspinatus tendon is i rregular and increased in signal but appears intact. There is a new thin linear defect in the suprasp inatus tendon approximately 2.5 cm medial to the distal edge of the footprint on coronal images suspi cious for a full-thickness tear (image 13, series 7). There is thin linear extension of the tear late rally toward the footprint (image 4, series 8). There is irregularity of the articular sided fibers o f the supraspinatus tendon distally. No retraction of tendon fibers. The infraspinatus, teres minor, and subscapularis tendons are intact. LABRUM: The superior and posterior superior labrum are blunted. BICEPS TENDON: Intra-articular biceps tendon is not visualized, likely sequela of interval tenotomy o r tenodesis. ACROMIOCLAVICULAR JOINT: Surgical changes of distal clavicular resection and acromioplasty. GLENOHUMERAL JOINT: There is superficial partial-thickness cartilage loss along the posterior glenoid . No full-thickness cartilage defects. Alignment is normal. Marrow signal is normal. OTHER: Small amount of fluid in the joint and fluid in the subacromial-subdeltoid bursa. IMPRESSION: 1. Interval surgical changes of rotator cuff repair. 2. Suspect recurrent full-thickness tear of the supraspinatus tendon medially. No retraction of fiber s. Arthrogram may be useful if further evaluation needed. 3. Sequela of distal clavicular resection, acromioplasty, and probable labral debridement and biceps tenotomy or tenodesis. 4. Small joint effusion and fluid in the subacromial-subdeltoid bursa. Electronically signed by: Marisa Castañeda MD (04/04/2021 4:47 PM) [id number]
== END ==
LOC: KCIC MRI 14:01
PROVIDERS: ATTEND Orthopaedic Surgery
DX: M75.101 Unspecified rotator cuff tear or rupture of right shoulder, not specified as traumatic (principal); M19.011 Primary osteoarthritis, right shoulder; M25.411 Effusion, right shoulder; Z98.890 Other specified postprocedural states
CPT/HCPCS: 73221

== ENCOUNTER → 2021-05-21 | Outpatient (CLI) | payer OTHER | LOC: LAB 11:14 | PROVIDERS: ATTEND Orthopaedic Surgery | DX: Z01.812 Encounter for preprocedural laboratory examination (principal); Z20.822 Contact with and (suspected) exposure to COVID-19; M75.121 Complete rotator cuff tear or rupture of right shoulder, not specified as traumatic | CPT/HCPCS: U0003; U0005 ==

== ENCOUNTER 2021-05-23 08:03 | Day surgery (SDC) | payer OTHER ==
[~2021-05-23] VITALS: Ht 167.6 cm; Wt 107.0 kg
[~2021-05-23 08:03] MED LIST changes: +EPINEPHrine VIAL 30 MG/30 ML VIAL ONE; +HYDROmorphone 2 MG/ML VIAL IVP PRN; +IV RINGERS,LACTATED 1000ML 1,000 ML IV SCH; +MORPHINE SULFATE 2 MG/ML INJ. IVP PRN; +PROCHLORPERAZINE 10 MG/2 ML VIAL. IVP PRN; +fentaNYL PF VIAL 100 MCG/2 ML VIAL IVP PRN
[2021-05-23] MEDS ORDERED: ROPIVacaine 0.5% PF 20 ML VIAL. ONE (08:34)
[2021-05-23] MEDS ORDERED: MIDAZOLAM HCL/PF 2 MG/2 ML VIAL. ONE (08:35)
[2021-05-23 08:39] VITALS: BP 140/68
[2021-05-23] MEDS ORDERED: SCOPOLAMINE 1.5MG PATCH. TD ONE (08:45)
[2021-05-23] MEDS ORDERED: ROCURONIUM 50 MG/5 ML VIAL. ONE (08:57)
[2021-05-23] MEDS ORDERED: fentaNYL PF VIAL 100 MCG/2 ML VIAL ONE (12:05)
[2021-05-23] MEDS: fentaNYL PF VIAL 100 MCG/2 ML VIAL IVP PRN ×2 (12:14→12:46)
[2021-05-23 12:45] VITALS: BP 129/71
[2021-05-23] MEDS ORDERED: oxyCODONE/APAP 7.5/325 1 TAB TABLET PO ONE (12:45)
[2021-05-23] MEDS ORDERED: OXYC1TAB19 PO (13:00)
--- NOTE | 2021-05-23 13:10 | DISCH ---
DISCHARGE INSTRUCTIONS Condition on Discharge Condition on Discharge: Stable Activity After Discharge Activity Instructions for Disc: Other, see below (Use sling until arm wakes up from the nerve block and then use sling for comfort only, would encourage moving the shoulder as much as symptomatically tolerated) Exercise Instruction after Dis: Exercise per therapy Weight Bearing Status after Di: As tolerated Diet after Discharge Diet after Discharge: Regular Wound Incision Care Wound/Incision Care: Ice to area for comfort, Change dressing (Remove dressing in 2 days may then shower no soaking until sutures removed) Community/Resources/Services Services at Discharge: PT EVALUATE & TREAT (May start passive and active range of motion advancing to strengthening as symptomatically tolerated. No need to protect any specific repair) Contacting the DR. after DC Call your doctor for: Concerns you may have Follow-Up Follow up with: Dr. Lin 10 days BRITTANY LIN MD May 23, 2021 13:10
--- NOTE | 2021-05-24 11:42 | PDOC4 ---
Operative Note Operative Note Date of surgery: 05/23/2021 Preoperative diagnosis: Ongoing right shoulder pain status post rotator cuff repair with acromioclavicular joint tenderness and suspected compromise of rotator cuff repair Postoperative diagnosis: Labral fraying, superior spur on distal clavicle, partial failure of rotator cuff repair with tethering of superior tissue Operative procedure: Right shoulder arthroscopy, revision distal clavicle excision subacromial decompression and debridement of glenoid labrum and exposed prominent suture on joint side of rotator cuff repair ([id number]) Surgeon: Riley Assist: Robson Lanza telecom assistant Anesthesia General plus scalene block Estimated blood loss: 5 cc Complications: None Operative indications: Please see my orthopedic clinic note for detailed operative indications and note that we had discussed in detail her failure to progress with physical therapy including 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 We talked about the possibility of revision rotator cuff repair revision distal clavicle excision and addressing any other pathology pertinent. We also discussed the possibility of nonhealing continued pain infection nerve or blood vessel damage medical or other anesthetic complications among others all her questions were answered and she wishes to proceed with surgical evaluation and treatment Operative text: Patient was identified procedure verified patient placed in the supine position on the operating table. After adequate amounts of general anesthesia plus a pre-existing scalene block were obtained, patient was placed in the decubitus position right side up all bony prominences were well-padded and the right shoulder was examined under anesthesia found to have full range of motion and no instability. The right shoulder was then prepped and draped in standard sterile fashion placed in the arthroscopic arm [place] with a total of 10 pounds of traction and after timeout was performed patient procedure identified and verified, a standard posterior portal was established an anterior portal established using spinal needle localization and the shoulder joint was systematically examined. She appeared to have a previous biceps tenotomy with likely tenodesis to the rotator cuff repair. The subscapularis tendon was intact and a structure appearing to be the biceps appeared to be scarred in but was partially attached and appeared to be pulled away to a medial row anchor slightly on the articular cartilage anteriorly. There were loops of prominent suture in this area indicating partial pulling away of some tethered tissue which appeared to involve part of the rotator cuff as well as perhaps the scarred in biceps long head. The prominent suture was removed and the tethered portion released to result in a normal anatomic appearing condition of the rotator cuff, which otherwise appeared to have an intact repair confirmed by probing with a spinal needle from a lateral portal approach. Further when this was marked with suture and extensive probing carried out from the joint side and bursal side, I judged that there was adequate thickness of the repair and essentially a normal appearance after the tethering and prominent suture was debrided away. She did have significant labral fraying throughout the superior anterior and posterior aspects but no separation of the labrum. Likewise the capsuloligamentous structures appeared normal and there was no evidence of instability either anterior posterior, which was consistent with her preop erative examination under anesthesia. She had a normal bare area of the humerus. The subacromial space had been previously entered to clear bursa for visualization to thoroughly examine the rotator cuff under all degrees of internal/external rotation. Again the only area palpable from the subacromial space was the anterior portal coming in through the rotator cuff interval which was only the size of the cannula. The rest of the rotator cuff insertion did not require further repair. The distal clavicle was exposed and the superiorly prominent overhanging bone was debrided back to an adequate joint space ensuring about 12 mm separation between the distal clavicle and acromion preserving the overlying joint capsule for stability. Any bony fragments were removed with the arthroscopic shaver, joint was drained of arthroscopic fluid portals closed with nylon suture sterile dressings were applied patient was returned to recovery room in stable condition having tolerated procedure well. Robson betancourt was present for the procedure and assisted in patient positioning prepping draping equipment positioning closure and dressings BRITTANY FRENCH MD May 24, 2021 11:42
== END 2021-05-23 13:30 | disposition home or self-care (01) ==
LOC: SURG 08:03
PROVIDERS: ATTEND Orthopaedic Surgery
DX: M25.511 Pain in right shoulder (principal); M75.121 Complete rotator cuff tear or rupture of right shoulder, not specified as traumatic; F41.9 Anxiety disorder, unspecified; F32.9 Major depressive disorder, single episode, unspecified; Z79.899 Other long term (current) drug therapy; Z98.890 Other specified postprocedural states; Z98.51 Tubal ligation status
CPT/HCPCS: 29823; 29824; 64415; 81025; A4930; J0171; J0690; J2250; J2795; J3010

== ENCOUNTER → 2021-07-04 | Outpatient (CLI) | payer OTHER ==
[~2021-07-04] MED LIST changes: -EPINEPHrine VIAL 30 MG/30 ML VIAL ONE; -HYDROmorphone 2 MG/ML VIAL IVP PRN; -IV RINGERS,LACTATED 1000ML 1,000 ML IV SCH; -MORPHINE SULFATE 2 MG/ML INJ. IVP PRN; -PROCHLORPERAZINE 10 MG/2 ML VIAL. IVP PRN; -fentaNYL PF VIAL 100 MCG/2 ML VIAL IVP PRN
--- NOTE | 2021-07-04 15:35 | RAD ---
EXAMINATION: US DPLX VENOUS EXTREMITY LOWER LT (LOWER EXTREMITY VENOUS ULTRASOUND) CLINICAL HISTORY: Left leg pain TECHNIQUE: Sonographic grayscale images obtained of the left lower extremity deep venous system with color flow Doppler, compression, and augmentation techniques as indicated. Images obtained and store d in a permanent archive. COMPARISON: None FINDINGS: No evidence of absent flow or incompressibility within the common femoral vein, femoral vein, or popl iteal vein. Visualized calf veins appear patent on limited evaluation. IMPRESSION: No evidence of left lower extremity DVT. Electronically signed by: Karan Nino DO (07/04/2021 3:33 PM) [id number]
== END ==
LOC: US 14:54
PROVIDERS: ATTEND Physician Assistant
DX: M79.652 Pain in left thigh (principal); Z82.49 Family history of ischemic heart disease and other diseases of the circulatory system; Z98.890 Other specified postprocedural states
CPT/HCPCS: 93971